=== PATIENT | female | born 2000 | race African-American/Black ===

== ENCOUNTER 2024-02-21 00:04 | Emergency (ER) | payer MEDICAID ==
[~2024-02-21] VITALS: Ht 160 cm; Wt 52.2 kg
[2024-02-21 00:10] VITALS: BP 109/72; PULSE 62; RESP 17; TEMP 98; O2SAT 100
[2024-02-21 00:16] VITALS: O2SAT 99
[2024-02-21] MEDS ORDERED: LIDOCAINE MPF 1% 5 ML ONE (01:22)
[2024-02-21] MEDS ORDERED: cefTRIAXone 500 MG VIAL ONE (01:22)
[2024-02-21] MEDS: cefTRIAXone 500 MG in LIDOCAINE MPF 1% 1 ML IM ONE (01:28)
[2024-02-21] MEDS: PHENAZOPYRIDINE 100 MG TAB PO ONE (01:29)
[2024-02-21 02:03] LABS: APPEARANCE,URINE CLEAR (CLEAR); BILIRUBIN,URINE NEGATIVE (NEGATIVE); BLOOD, URINE NEGATIVE (NEGATIVE); COLOR,URINE YELLOW (YELLOW); LEUKOCYTE ESTERASE ,URINE NEGATIVE (NEGATIVE); NITRITE, URINE NEGATIVE (NEGATIVE); PROTEIN,URINE NEGATIVE (NEGATIVE); UGLUCOSE NEGATIVE (NEGATIVE); UROBILINOGEN,URINE 0.2 EU/dL (0.2 - 1)
[2024-02-21] MEDS ORDERED: DOXY100T9 PO (02:33)
[2024-02-21] MEDS ORDERED: PYR100 PO (02:33)
[2024-02-21 02:35] VITALS: BP 118/65; PULSE 74; RESP 16; TEMP 98.2; O2SAT 100
== END 2024-02-21 02:35 | disposition home or self-care (01) ==
LOC: MED 00:04
DX: R30.0 Dysuria (principal); Z79.899 Other long term (current) drug therapy
CPT/HCPCS: 81003; 81025; 87491; 96372; 99283; J0696; J2001